=== PATIENT | female | born 1975 | race Two or more races ===

== ENCOUNTER 2021-11-01 10:13 | Outpatient (REF) | payer OTHER, SELFPAY ==
[2021-11-01 11:58] LABS: COVID-19 Test Negative (Negative)
== END 2021-11-01 10:14 | disposition home or self-care (01) ==
LOC: HO.LAB 10:13
PROVIDERS: Visit Provider Internal Medicine
DX: Z20.822 Contact with and (suspected) exposure to COVID-19 (principal)
CPT/HCPCS: 36415; 87635; C9803

== ENCOUNTER 2021-11-03 12:21 | Outpatient (REF) | payer OTHER, SELFPAY ==
[2021-11-03 14:04] LABS: COVID-19 Test Negative (Negative)
== END 2021-11-03 12:22 | disposition home or self-care (01) ==
LOC: HO.LAB 12:21
PROVIDERS: Visit Provider Internal Medicine
DX: Z20.822 Contact with and (suspected) exposure to COVID-19 (principal)
CPT/HCPCS: 36415; 87635; C9803